=== PATIENT | male | born 1995 | race Caucasian/White ===

== ENCOUNTER 2016-12-27 15:10 | Emergency (ER) | payer OTHER | END 2016-12-27 17:32 | disposition home or self-care (01) | LOC: ER 15:10 | DX: F07.81 Postconcussional syndrome (principal); F41.9 Anxiety disorder, unspecified; I10 Essential (primary) hypertension; W17.89XA Other fall from one level to another, initial encounter | CPT/HCPCS: 36415; 96372; J1885 ==